=== PATIENT | male | born 1995 | race Caucasian/White ===

== ENCOUNTER 2024-06-20 13:20 | Emergency (ER) | payer BC ==
[2024-06-20] MEDS ORDERED: IBUPROFEN 600 MG TAB PO ONE (16:40)
--- NOTE | 2024-07-16 08:39 | US ---
Report Patient: Roderick Cuello Ordering Physician: Unknown, Unknown ID: [id number] Phone, Pager: Phone: N/A Pager: N/A : 1995 Age/Gender: 28Y, N/A Primary Location: N/A Procedure: US scrotum with doppler Study Date: 06/20/2024 2:13:00 PM EXAMINATION TYPE: US scrotum with doppler DATE OF EXAM: 06/20/2024 COMPARISON: None HISTORY: 28-year-old male left greater than right testicular pain for one day TECHNIQUE: Multiple sonographic images of the scrotum were obtained. Color Doppler and spectral wavef orm analysis of the testicular arteries and veins. FINDINGS: Right testicle measures 41 x 31 x 24 mm. Left testicle measures 43 x 28 x 26 mm. Both testicles show normal homogeneous appearance without hyperemia. There is satisfactory arterial a nd venous flow bilaterally. Right epididymal head measures 1 cm. Left epididymal head measures 8 mm. There is a trace hydrocele on the right. No varicocele is identified. IMPRESSION: No sonographic evidence for testicular torsion or epididymoorchitis. A trace hydrocele on the right.
== END 2024-06-20 17:12 | disposition home or self-care (01) ==
LOC: EC 13:20
DX: J10.1 Influenza due to other identified influenza virus with other respiratory manifestations (principal)
CPT/HCPCS: 76870; 93975; 99283